=== PATIENT | female | born 1990 | race Caucasian/White ===

== ENCOUNTER 2019-08-10 18:13 | Emergency (ER) | payer SELFPAY ==
[~2019-08-10] VITALS: Ht 160 cm; Wt 68.0 kg
[2019-08-10 18:29] VITALS: BP 112/75
--- NOTE | 2019-08-10 18:29 | NUR ---
ED Nurse Note: PT FROM [facility] BROUGHT IN BY AMBULANCE DUE TO LOWER ABD PAIN WITH N/V X 3 DAYS. PT STATES IT'S DIFFICULT FOR HER TO HAVE A BOWEL MOVEMENT AND BRIGHT RED BLOOD IS COMING OUT FROM HER. AAO X4, AMBULATORY WITH NON LABORED BREATHING.
[2019-08-10] MEDS ORDERED: Morphine Sulfate 2mg/ml Inj(IV/IM USE ONLY) IVP ONE (18:30)
[2019-08-10] MEDS ORDERED: Metoclopramide 10mg/2ml Inj IVP ONE (18:30)
--- NOTE | 2019-08-10 18:58 | Emergency Room Report ---
History of Present Illness General Chief Complaint: Abdominal Pain Source: Patient, EMS Present Illness HPI She states that the patient presents with suprapubic pain. This been going on for 3 days. Today she started vomiting and therefore asked to come to the hospital. She has been drinking water with charcoal and when she is vomiting up looks like that material. She denies vomiting blood. She denies diarrhea. The pain is fairly constant and suprapubic. In the past when she has had an ovarian cyst and ectopic it was lateral. She denies any vaginal discharge or dysuria. She is moving her bowels without any difficulty. She denies fevers or chills. The pain is rated 8/10 and constant and aching. Is not radiating. She has no back or flank pain. Her periods have been irregular. She has been bleeding every 2 weeks recently. She took the 72-hour control pill 2 months ago. She does not believe she is although she is not using barrier contraception. During her work withdrawal occurs prior to ejaculation. She gets tested for HIV every 2 weeks. She reports the last test was negative. Ectopic . History of bipolar disorder. She states she is stable at this time and takes Lamictal. She had a seizure at one point distantly. She is been able to tolerate taking the Lamictal. History of pancreatitis. The pain feels different than the current pain that she feels. Due to the prior history of pancreatitis she has stopped drinking alcohol. Multiple medication allergies. Allergies: Coded Allergies: ACETAMINOPHEN (Verified Allergy, Unknown, 08/10/19) AMOXICILLIN (Verified Allergy, Unknown, 08/10/19) ASPIRIN (Verified Allergy, Unknown, 08/10/19) DIPHENHYDRAMINE (Verified Allergy, Unknown, 08/10/19) EPINEPHRINE (Verified Allergy, Unknown, 08/10/19) EUCALYPTUS (Verified Allergy, Unknown, 08/10/19) IBUPROFEN (Verified Allergy, Unknown, 08/10/19) IODINE (Verified Allergy, Unknown, 08/10/19) KETOROLAC (Verified Allergy, Unknown, 08/10/19) LIDOCAINE (Verified Allergy, Unknown, 08/10/19) Uncoded Allergies: ADDERAL (Allergy, Unknown, 08/10/19) CHLORHEXADINE (Allergy, Unknown, 08/10/19) CONTRAST (Allergy, Unknown, 08/10/19) NSAIDS (Allergy, Unknown, 08/10/19) PENICILLIN (Allergy, Unknown, 08/10/19) LISA'S VAPO RUB (Allergy, Unknown, 08/10/19) Patient History Past Medical History: see triage record Past Surgical History: other - Ectopic Social History: Reports: alcohol use - sober 7 years, drug use - THC 40; Denies : smoking - Former Social History Narrative porn star Last Menstrual Period: UNKNOWN Reviewed Nursing Documentation: PMH: Agreed; PSxH: Agreed Nursing Documentation-PMH Past Medical History: No History, Except For Hx Asthma: Yes Hx Gastrointestinal Problems: Yes - CHRONIC PANCREATITS, SLUDGING GALLBLADDER Review of Systems All Other Systems: negative except mentioned in HPI Physical Exam Vital Signs Date Time Temp Pulse Resp B/P (MAP) Pulse Ox O2 Delivery O2 Flow Rate FiO2 08/10/19 18:19 98.4 75 16 109/74 (86) 99 Room Air Sp02 EP Interpretation: reviewed, normal General Appearance: well appearing, no apparent distress, GCS 15 Head: normocephalic Eyes: bilateral eye normal inspection, bilateral eye PERRL, bilateral eye EOMI ENT: moist mucus membranes Neck: supple Respiratory: lungs clear, normal breath sounds Cardiovascular #1: regular rate, rhythm Cardiovascular #2: 2+ radial (R) Gastrointestinal: normal inspection, normal bowel sounds, no mass, non- distended, no guarding, no rebound, tenderness - suprapubic, overweight Genitourinary: no CVA tenderness Musculoskeletal: back normal, gait/station normal, normal range of motion Neurologic: alert, oriented x3, grossly normal Psychiatric: mood/affect normal Skin: no rash, warm/dry Medical Decision Making Diagnostic Impression: Primary Impression: Pelvic pain Additional Impression: Vomiting Qualified Codes: R11.2 - Nausea with vomiting, unspecified ER Course Patient presents with 3 days of suprapubic pain and now vomiting. Differential includes early , ectopic, ovarian cyst, PID, UTI amongst others. Evaluation with labs. The patient be treated with IV hydration, Reglan and Vistaril as she has multiple allergies. Also she will be given a small dose of morphine. The fact she is afebrile PID is less likely. The fact that she intermittently takes the morning after pill may be related to her abnormal menstruation. Labs with normal white count. Negative test. CMP unremarkable. Patient improved with treatment. Sleeping and awakened to discuss findings. She agrees that pain is decreased. Patient describes that she used Tylenol extensively for many years. Its questionable allergy. She is reluctant to consider Tylenol use at this time. She states she has tramadol at home. She believes this would not be helpful. She pressuring to obtain a prescription for liquid codeine. I stated that the pain will be modified with the other medications being prescribed for her. Pain is consistent with menstrual cramps. No medical emergency and patient stable for outpatient observation and treatment. Laboratory Tests Test 08/10/19 18:55 White Blood Count 9.0 K/UL (4.8-10.8) Red Blood Count 4.40 M/UL (4.20-5.40) Hemoglobin 13.1 G/DL (12.0-16.0) Hematocrit 37.9 % (37.0-47.0) Mean Corpuscular Volume 86 FL (80-99) Mean Corpuscular Hemoglobin 29.8 PG (27.0-31.0) Mean Corpuscular Hemoglobin Concent 34.6 G/DL (32.0-36.0) Red Cell Distribution Width 10.8 % (11.6-14.8) L Platelet Count 218 K/UL (150-450) Mean Platelet Volume 6.7 FL (6.5-10.1) Neutrophils (%) (Auto) 64.4 % (45.0-75.0) Lymphocytes (%) (Auto) 20.7 % (20.0-45.0) Monocytes (%) (Auto) 8.9 % (1.0-10.0) Eosinophils (%) (Auto) 4.2 % (0.0-3.0) H Basophils (%) (Auto) 1.9 % (0.0-2.0) Prothrombin Time 10.0 SEC (9.30-11.50) Prothrombin Time INR 0.9 (0.9-1.1) PTT 27 SEC (23-33) Urine Color Pale yellow Urine Appearance Slightly cloudy Urine pH 7 (4.5-8.0) Urine Specific Rowe 1.010 (1.005-1.035) Urine Protein Negative (NEGATIVE) Urine Glucose (UA) Negative (NEGATIVE) Urine Ketones Negative (NEGATIVE) Urine Blood 4+ (NEGATIVE) H Urine Nitrite Negative (NEGATIVE) Urine Bilirubin Negative (NEGATIVE) Urine Urobilinogen Normal MG/DL (0.0-1.0) Urine Leukocyte Esterase Negative (NEGATIVE) Urine RBC Tntc /HPF (0 - 2) H Urine WBC 0-2 /HPF (0 - 2) Urine Squamous Epithelial Cells Few /LPF (NONE/OCC) Urine Bacteria Few /HPF (NONE) Urine HCG, Qualitative Negative (NEGATIVE) Sodium Level 141 MMOL/L (136-145) Potassium Level 3.6 MMOL/L (3.5-5.1) Chloride Level 107 MMOL/L (98-107) Carbon Dioxide Level 28 MMOL/L (21-32) Anion Gap 6 mmol/L (5-15) Blood Urea Nitrogen 9 mg/dL (7-18) Creatinine 0.8 MG/DL (0.55-1.30) Estimate Glomerular Filtration Rate > 60 mL/min (>60) Glucose Level 99 MG/DL (74-106) Calcium Level 8.6 MG/DL (8.5-10.1) Total Bilirubin 0.2 MG/DL (0.2-1.0) Aspartate Amino Transferase (AST) 16 U/L (15-37) Alanine Aminotransferase (ALT) 22 U/L (12-78) Alkaline Phosphatase 55 U/L (46-116) Total Protein 7.1 G/DL (6.4-8.2) Albumin 3.5 G/DL (3.4-5.0) Globulin 3.6 g/dL Albumin/Globulin Ratio 1.0 (1.0-2.7) Lipase 119 U/L (73-393) Last Vital Signs Date Time Temp Pulse Resp B/P (MAP) Pulse Ox O2 Delivery O2 Flow Rate FiO2 08/10/19 22:32 16 108/72 100 Room Air 08/10/19 20:48 98.1 74 Status: improved Disposition: HOME, SELF-CARE Condition: Improved Scripts Famotidine (PEPCID AC) 20 Mg Tablet 20 MG PO DAILY, #20 TAB Prov: Nathaniel Salinas MD 08/10/19 Promethazine HCl (Promethegan) 25 Mg Supp.rect 25 MG RECTAL Q8HR PRN for Nausea & Vomiting, #6 SUPP Prov: Nathaniel Salinas MD 08/10/19 Promethazine Hcl* (PHENERGAN*) 25 Mg Tablet 25 MG ORAL Q8HR, #8 TAB 0 Refills Prov: Nathaniel Salinas MD 08/10/19 Lamotrigine (LAMICTAL) 200 Mg Tablet 200 MG ORAL DAILY, #14 TAB 0 Refills Prov: Nathaniel Salinas MD 08/10/19 Hydroxyzine Pamoate (VISTARIL) 25 Mg Capsule 25 MG PO Q8HR PRN for Nausea & Vomiting, #14 CAP Prov: Nathaniel Salinas MD 08/10/19 Nathaniel Salinas MD Aug 10, 2019 18:58
--- NOTE | 2019-08-10 19:10 | NUR ---
HAND-OFF: Report given to PRASHANTH FELIPE.
--- NOTE | 2019-08-10 19:11 | NUR ---
ED Nurse Note: Handoff from RN.
[2019-08-10 19:24] LABS: APPEARANCE,URINE SLIGHTLY CLOUDY; BILIRUBIN, URINE NEGATIVE (NEGATIVE); COLOR,URINE PALE YELLOW; GLUCOSE, URINE (UA) NEGATIVE (NEGATIVE); KETONES,URINE NEGATIVE (NEGATIVE); LEUKOCYTE ESTERASE ,URINE NEGATIVE (NEGATIVE); NITRITE,URINE NEGATIVE (NEGATIVE); PH,URINE 7 (4.5-8.0); PROTEIN,URINE NEGATIVE (NEGATIVE); UROBILINOGEN,URINE NORMAL MG/DL (0.0-1.0)
[2019-08-10 19:26] LABS: BASOPHILS % (AUTO) 1.9 % (0.0-2.0); EOSINOPHILS % (AUTO) 4.2 % (0.0-3.0); HEMATOCRIT 37.9 % (37.0-47.0); HEMOGLOBIN 13.1 G/DL (12.0-16.0); LYMPHOCYTES % (AUTO) 20.7 % (20.0-45.0); MEAN CORPUSCULAR VOLUME 86 FL (80-99); MONOCYTES % (AUTO) 8.9 % (1.0-10.0); NEUTROPHILS % (AUTO) 64.4 % (45.0-75.0); PLATELET COUNT 218 K/UL (150-450); RED CELL DISTRIBUTION WIDTH 10.8 % (11.6-14.8)
[2019-08-10 19:30] VITALS: BP 111/77
[2019-08-10 19:40] LABS: ANION GAP 6 mmol/L (5-15); BLOOD UREA NITROGEN 9 mg/dL (7-18); CALCIUM 8.6 MG/DL (8.5-10.1); CARBON DIOXIDE 28 MMOL/L (21-32); CHLORIDE 107 MMOL/L (98-107); CREATININE 0.8 MG/DL (0.55-1.30); POTASSIUM 3.6 MMOL/L (3.5-5.1); SODIUM 141 MMOL/L (136-145)
[2019-08-10 19:44] LABS: ALANINE AMINOTRANSFERASE 22 U/L (12-78); ALBUMIN 3.5 G/DL (3.4-5.0); ALKALINE PHOSPHATASE 55 U/L (46-116); ASPARTATE AMINO TRANSFERASE 16 U/L (15-37); BILIRUBIN,TOTAL 0.2 MG/DL (0.2-1.0)
[2019-08-10 19:48] LABS: INR 0.9 (0.9-1.1)
--- NOTE | 2019-08-10 20:46 | NUR ---
ED Nurse Note: Patient nursed ihn bed 5. Vitals monitored. Patient ambulatory to bathroom x2. Warm blanket provided for comfort. Medications given as prescribed. Patient calm. IV fluids as prescribed. Patient intermittently sleeping. Patient states pain does fell better following medications but reports pain score of 7.
[2019-08-10 20:48] VITALS: BP 105/74
[2019-08-10] MEDS ORDERED: PHENERGAN SUPP25 MG RECTAL (22:09)
[2019-08-10] MEDS ORDERED: PEPCID AC20 M2 PO (22:09)
[2019-08-10] MEDS ORDERED: VISTARIL25 M1 PO (22:09)
[2019-08-10] MEDS ORDERED: LAMICTAL200 MG ORAL (22:09)
[2019-08-10] MEDS ORDERED: PHENERGAN25 M1 ORAL (22:09)
--- NOTE | 2019-08-10 22:31 | NUR ---
ER DISCHARGE NOTE: Patient is cleared to be discharged per ERMD, pt is aox4, on room air, with stable vital signs. pt was given dc and prescription instructions, pt was able to verbalize understanding, pt id band and iv site removed without complications. pt is able to ambulate with steady gait. pt took all belongings. Patient provided with giuseppe pad as has commenced menstruation cycle.
[2019-08-10 22:32] VITALS: BP 108/72
== END 2019-08-10 22:52 | disposition home or self-care (01) ==
LOC: EDBD 18:13 → EMR 18:33
DX: R11.2 Nausea with vomiting, unspecified (principal); R10.2 Pelvic and perineal pain; J45.909 Unspecified asthma, uncomplicated; F12.10 Cannabis abuse, uncomplicated; F31.9 Bipolar disorder, unspecified; Z88.6 Allergy status to analgesic agent; Z88.1 Allergy status to other antibiotic agents; Z88.8 Allergy status to other drugs, medicaments and biological substances; Z91.041 Radiographic dye allergy status; Z88.0 Allergy status to penicillin
CPT/HCPCS: 36415; 80053; 81003; 81025; 83690; 85025; 85610; 85730; 96361; 96374; 96375; 99284; J2270; J2765; S0028; J7030